=== PATIENT | male | born 1940 ===

== ENCOUNTER 2022-01-23 10:54 | Emergency (ER) | payer OTHER ==
[~2022-01-23] VITALS: Ht 167.6 cm; Wt 77.1 kg
[2022-01-23] MEDS ORDERED: METFORMIN HCL500 M4 PO (11:19)
[2022-01-23] MEDS ORDERED: AMLODIPINE-BEN1 EAC1 PO (11:19)
[2022-01-23] MEDS ORDERED: SYNJARDY 5-5001 EACH PO (11:19)
[2022-01-23] MEDS ORDERED: TADALAFIL5 MG PO (11:20)
[2022-01-23] MEDS ORDERED: VITAMIN D310 MCG/1 M PO (11:20)
[2022-01-23] MEDS ORDERED: FINASTERIDE5 MG PO (11:20)
[2022-01-23] MEDS ORDERED: ROSUVASTATIN CA40 MG PO (11:20)
[2022-01-23] MEDS ORDERED: CHILDREN'S ASPI81 MG PO (11:20)
== END 2022-01-23 15:50 | disposition home or self-care (01) ==
LOC: ER 10:54
DX: R07.9 Chest pain, unspecified (principal); Z20.822 Contact with and (suspected) exposure to COVID-19